=== PATIENT | female | born 1960 | race Caucasian/White ===

== ENCOUNTER 2019-10-19 06:58 | Day surgery (SDC) | payer MEDICARE, OTHER ==
[~2019-10-19] VITALS: Ht 175.3 cm; Wt 72.7 kg
[~2019-10-19 06:58] MED LIST: AMIT25TA PO; CHOL200024 PO; LACT1CAP37 PO
[2019-10-19] MEDS ORDERED: LACTATED RINGERS 1,000 ML IV SCH (07:35)
[2019-10-19 07:37] VITALS: BP 125/79
[2019-10-19] MEDS ORDERED: GABAPENTIN 300 MG CAPSULE PO ONE (08:00)
[2019-10-19] MEDS ORDERED: LIDOCAINE-MPF 1%, 2ML INFIL ONE (08:00)
[2019-10-19] MEDS ORDERED: ACETAMINOPHEN 500 MG TABLET PO ONE (08:00)
[2019-10-19] MEDS ORDERED: MIDAZOLAM 1 MG/ML, 2ML ONE (10:09)
[2019-10-19] MEDS ORDERED: FENTANYL PF 250 MCG/5ML ONE (10:09)
[2019-10-19] MEDS ORDERED: SCOPOLAMINE PATCH, 1.5MG PATCH.TD72 TD ONE ×2 (10:30)
[2019-10-19] MEDS ORDERED: BUPIVACAINE/PF 0.5% INFIL ONE (11:27)
[2019-10-19] MEDS ORDERED: THROMBIN (RECOMBINANT) 5,000 UNIT VIAL TP ONE ×2 (11:28→15:21)
[2019-10-19] MEDS ORDERED: BACITRACIN 50,000 UNIT IRRIG ONE (11:29)
[2019-10-19] MEDS ORDERED: OXYcodone 5 MG/5 ML ORAL.SOL UDC PO PRN (11:30)
[2019-10-19] MEDS ORDERED: ALBUTEROL SULFATE 2.5 MG/3 ML NPPB PRN (11:30)
[2019-10-19] MEDS ORDERED: HYDROmorphone 2 MG/ML, 1ML IVPush PRN (11:30)
[2019-10-19] MEDS ORDERED: hydrALAzine 20 MG/ML, 1ML IV PRN (11:30)
[2019-10-19] MEDS ORDERED: MEPERIDINE/PF 25MG/0.5ML IVPush PRN (11:30)
[2019-10-19] MEDS ORDERED: LABETALOL 5MG/ML, 20ML IV PRN (11:30)
[2019-10-19] MEDS ORDERED: PROMETHAZINE 25 MG/ML, 1ML IV PRN (11:30)
[2019-10-19] MEDS ORDERED: PROPOFOL 100 ML ONE (11:48)
[2019-10-19] MEDS ORDERED: FENTANYL PF 100 MCG/2ML ONE ×2 (12:03→13:22)
[2019-10-19] MEDS ORDERED: LIDOCAINE 1%, 20ML ONE (12:33)
[2019-10-19] MEDS ORDERED: NEOSTIGMINE 1 MG/ML, 10ML ONE (12:40)
[2019-10-19] MEDS ORDERED: ROCURONIUM 10MG/ML,5ML ONE (12:40)
[2019-10-19] MEDS ORDERED: PROPOFOL 10 MG/ML, 20ML ONE (12:40)
[2019-10-19] MEDS ORDERED: ONDANSETRON 2MG/ML, 2ML ONE (12:40)
[2019-10-19] MEDS ORDERED: GLYCOPYRROLATE 0.2MG/1ML, 5ML ONE (12:40)
[2019-10-19] MEDS ORDERED: SUCCINYLCHOLINE 20 MG/ML, 10ML ONE (12:40)
[2019-10-19] MEDS ORDERED: CEFAZOLIN 1,000 MG ONE (12:40)
[2019-10-19] MEDS ORDERED: DEXAMETHASONE 4 MG/ML, 1ML ONE (12:40)
[2019-10-19] MEDS ORDERED: MAGNESIUM HYDROXIDE 8%, 30ML UDC PO PRN (13:00)
[2019-10-19] MEDS ORDERED: PHARMACY MAY ADJ FOR RENAL FX MC PRN (13:00)
[2019-10-19] MEDS ORDERED: PROMETHAZINE 25 MG/ML, 1ML IM PRN (13:00)
[2019-10-19] MEDS ORDERED: SENNA/DOCUSATE TABLET PO PRN (13:00)
[2019-10-19] MEDS ORDERED: BISACODYL 10 MG SUPP PR PRN (13:00)
[2019-10-19] MEDS ORDERED: ONDANSETRON 2MG/ML, 2ML IVPush PRN (13:00)
[2019-10-19] MEDS ORDERED: DIAZEPAM 5 MG/ML, 2ML ONE (13:22)
[2019-10-19] MEDS: FENTANYL PF 100 MCG/2ML IV PRN ×3 (13:23→14:05)
[2019-10-19] MEDS: DIAZEPAM 5 MG/ML, 2ML IVPush PRN ×2 (13:31→13:54)
[2019-10-19] MEDS: HYDROcodone/APAP 5/325 TABLET PO PRN ×2 (14:51→19:06)
[2019-10-19] MEDS: ACETAMINOPHEN 325 MG TABLET PO PRN ×3 (15:02→23:47)
[2019-10-19] MEDS ORDERED: BUPIVACAINE/PF 0.5% ONE (15:20)
[2019-10-19] MEDS ORDERED: EPINEPHRINE 1 MG/ML, 1ML ONE (15:20)
[2019-10-19] MEDS: NS + 20MEQ KCL 1,000 ML IV SCH (15:45)
[2019-10-19 19:25] VITALS: BP 103/68
[2019-10-19] MEDS: SODIUM CHLORIDE FLUSH 10ML SYR IVF SCH (19:29)
[2019-10-19] MEDS: CEFAZOLIN PMX 1GM/50ML 50 ML IVPB SCH (19:29)
[2019-10-19] MEDS: TIZANIDINE 2MG TABLET PO PRN (19:30)
[2019-10-19] MEDS ORDERED: AMITRIPTYLINE 25 MG TABLET PO SCH (21:00)
[2019-10-19] MEDS: DIPHENHYDRAMINE 50 MG/ML, 1ML IVPush PRN (21:26)
[2019-10-19 23:56] VITALS: BP 96/61
[2019-10-20] MEDS: NS + 20MEQ KCL 1,000 ML IV SCH ×2 (00:44→08:41)
[2019-10-20] MEDS: DIPHENHYDRAMINE 50 MG/ML, 1ML IVPush PRN (03:57)
[2019-10-20] MEDS: TIZANIDINE 2MG TABLET PO PRN (03:57)
[2019-10-20] MEDS: ACETAMINOPHEN 325 MG TABLET PO PRN ×2 (03:57→08:40)
[2019-10-20] MEDS: CEFAZOLIN PMX 1GM/50ML 50 ML IVPB SCH (03:58)
[2019-10-20 04:06] VITALS: BP 97/61
[2019-10-20] MEDS: HYDROcodone/APAP 5/325 TABLET PO PRN (04:16)
[2019-10-20 07:45] VITALS: BP 87/55
[2019-10-20] MEDS ORDERED: HYDR-3240 PO (08:25)
[2019-10-20] MEDS ORDERED: TIZA2CAP2 PO (08:26)
[2019-10-20] MEDS: SODIUM CHLORIDE FLUSH 10ML SYR IVF SCH (08:41)
== END 2019-10-20 11:58 | disposition home or self-care (01) ==
LOC: OUT 06:58 → ORIP 12:42 → UNDOADMIN 12:42 → 4NE 14:40 → ORIP 14:40 → DCLOUNGE 10-20 11:24 → 4NE 10-20 11:24 → UNDODISIN 10-20 11:58 → OUT 10-20 11:58
PROVIDERS: ATTEND Neurological Surgery
DX: M47.22 Other spondylosis with radiculopathy, cervical region (principal); M50.123 Cervical disc disorder at C6-C7 level with radiculopathy; M25.78 Osteophyte, vertebrae; G56.02 Carpal tunnel syndrome, left upper limb; J44.9 Chronic obstructive pulmonary disease, unspecified; F17.210 Nicotine dependence, cigarettes, uncomplicated; Z79.899 Other long term (current) drug therapy; Z88.2 Allergy status to sulfonamides; Z88.5 Allergy status to narcotic agent; Z98.890 Other specified postprocedural states; Z83.3 Family history of diabetes mellitus
CPT/HCPCS: 20930; 22551; 22552; 22845; 22853; 64721; 72040; 95938; 95941; 97161; 97165; C1713; J0171; J0330; J0690; J1100; J1200; J2250; J2405; J2704; J3010; J3360; J3480; J7120; 76000; G0378; J2710